=== PATIENT | male | born 1960 | race African-American/Black ===

== ENCOUNTER 2021-01-10 19:57 | Emergency (ER) | payer OTHER ==
[2021-01-10 20:04] VITALS: BMI 23.4
[2021-01-10] MEDS ORDERED: SODIUM CHLORIDE 1,000 ML IV STA (21:34)
[2021-01-10 23:16] LABS: BASO % 0.6 % (0-2.0); EOS % 0.4 % (0-4.5); HEMATOCRIT 39.6 % (35.4-49); LYMPH % 44.6 % (8-40); MCH 28.3 pg (25.7-33.7); MCHC 32.7 g/dl (32.0-35.9); MEAN CELL VOLUME 86.4 fl (80-96); MEAN PLT VOLUME 9.3 fl (7.5-11.1); MONO % 11.5 % (3.8-10.2); NEUT % 42.9 % (42.8-82.8); PLATELET COUNT 268 K/MM3 (134-434); RBC 4.59 M/mm3 (4.00-5.60); RDW 13.1 % (11.9-15.9)
[2021-01-10 23:31] VITALS: TEMP 97.8
[2021-01-10 23:35] LABS: POTASSIUM 5.6 mmol/L (3.5-5.1)
[2021-01-10 23:37] LABS: BLOOD UREA NITROGEN 15.3 mg/dL (7-18); CALCIUM 9.9 mg/dL (8.5-10.1)
[2021-01-10 23:38] LABS: ALBUMIN 3.9 g/dl (3.4-5.0)
[2021-01-10 23:40] LABS: CREATININE 0.9 mg/dL (0.55-1.3)
[2021-01-10 23:42] LABS: BILIRUBIN,TOTAL 1.2 mg/dL (0.2-1); TOT PROT 8.4 g/dl (6.4-8.2)
[2021-01-10 23:50] LABS: URINE APPEARANCE CLEAR; URINE BILIRUBIN NEGATIVE (NEGATIVE); URINE COLOR YELLOW; URINE GLUCOSE (UA) 500 mg/dl (NEGATIVE); URINE KETONE >=80 mg/dl (NEGATIVE)
[2021-01-10 23:51] LABS: URINE NITRITE NEGATIVE (NEGATIVE); URINE PROTEIN 30 (NEGATIVE); URINE UROBILINOGEN 0.2 mg/dL (0.2-1.0)
[2021-01-10 23:52] LABS: URINE LEUK ESTERASE NEGATIVE (NEGATIVE)
[2021-01-11 00:59] VITALS: BP 169/86; PULSE 76
== END 2021-01-11 01:01 | disposition home or self-care (01) ==
LOC: JER 19:57
PROC: 3E0337Z Introduction of Electrolytic and Water Balance Substance into Peripheral Vein, Percutaneous Approach (ICD-10-PCS; principal; 2021-01-10)
DX: R73.9 Hyperglycemia, unspecified (principal); R03.0 Elevated blood-pressure reading, without diagnosis of hypertension
CPT/HCPCS: 36415; 80053; 81003; 82010; 82962; 85025; 99284-25